=== PATIENT | male | born 1975 | race Caucasian/White ===

== ENCOUNTER 2023-01-13 17:42 | Emergency (ER) | payer OTHER ==
[2023-01-13] MEDS ORDERED: LIDOCAINE 1% MPF 5 ML VIAL ONE (18:16)
[2023-01-13] MEDS ORDERED: TDAP (DIPHTH,PERTUSS(ACELL),TET VAC) 0.5 ML VIAL IMVAC ONE (18:16)
--- NOTE | 2023-01-13 19:21 | RAD REPORT ---
EXAM DESCRIPTION: RAD - Foot Left 3 View - 01/13/2023 6:44 pm CLINICAL HISTORY: WOUND COMPARISON: No comparisons TECHNIQUE: Left foot, 3 views. FINDINGS: No fracture, dislocation or periosteal reaction. No air or foreign body in the soft tissues. Small calcaneal spur. IMPRESSION: Negative left foot radiographs.
--- NOTE | 2023-01-13 20:28 | EDPHYS ---
Physician Documentation [facility] Name: Shahram Estes Age: 47 yrs Sex: Male : 1975 Arrival Date: 01/13/2023 Time: 17:42 Bed 10 Private MD: ED Physician Barrett Vogel HPI: 01/13 18:52 This 47 yrs old Male presents to ER via Ambulatory with complaints of Laceration To rn Foot - Toe. 18:52 The patient has a laceration occurred outdoors. The laceration(s) is(are) located on rn the plantar aspect of left first toe. Onset: The symptoms/episode began/occurred just prior to arrival. The patient has not experienced similar symptoms in the past. The patient has not recently seen a physician. Historical: - Allergies: 18:02 No Known Allergies; mb9 - Home Meds: 18:02 losartan-hydrochlorothiazide oral [Active]; amlodipine oral [Active]; mb9 - PMHx: 18:02 Hypertensive disorder; mb9 - PSHx: 18:02 None; mb9 - Immunization history:: Last tetanus immunization: < 10 years ago. - Social history:: Smoking status: Patient reports the use of cigarette tobacco products, denies chronic smoking, but will smoke occasionally. - Family history:: not pertinent. - Hospitalizations: : No recent hospitalization is reported. ROS: 18:52 Constitutional: Negative for fever, chills, and weight loss, MS/Extremity: + laceration rn to left 1st toe Exam: 18:52 Constitutional: This is a well developed, well nourished patient who is awake, alert, rn and in no acute distress. MS/ Extremity: Pulses equal, no cyanosis. Neurovascular intact. Full, normal range of motion. Plantar aspect of left 1st toe with irregular and superficial 3 cm laceration, mild bleeding Vital Signs: 18:01 BP 147 / 105; Pulse 89; Resp 18; Temp 98.4(O); Pulse Ox 100% on R/A; Weight 97.52 kg; mb9 Height 5 ft. 11 in. ; 20:35 BP 157 / 111; Pulse 80; Resp 18; Pain 3/10; nj1 18:01 Body Mass Index 29.99 (97.52 kg, 180.34 cm) mb9 20:35 Pain Scale: Adult nj1 Laceration: 20:24 Wound Repair of 3cm ( 1.2in ) subcutaneous laceration to plantar aspect of left first rn toe. Distal neuro/vascular/tendon intact. Anesthesia: Wound infiltrated with 3 mls of 1% lidocaine. Wound prep: Extensive cleansing by me, Wound irrigation by me, Particulate matter removal of gravel, Wound margin revised minimally, Wound debrided minimally, Wound explored extensively. Skin closed with 6 4-0 Prolene using interrupted sutures and sterile technique. Dressed with 4x4's. Patient tolerated well. MDM: 17:48 Patient medically screened. rn 20:24 Differential diagnosis: superficial laceration. Data reviewed: vital signs, nurses rn notes, radiologic studies, plain films, and as a result, I will discharge patient. 20:26 Counseling: I had a detailed discussion with the patient and/or guardian regarding: the rn historical points, exam findings, and any diagnostic results supporting the discharge/admit diagnosis, radiology results, the need for outpatient follow up, to return to the emergency department if symptoms worsen or persist or if there are any questions or concerns that arise at home. Response to treatment: the patient's symptoms have markedly improved after treatment, and as a result, I will discharge patient. Special discussion: I discussed with the patient/guardian in detail that at this point there is no indication for admission to the hospital. It is understood, however, that if the symptoms persist or worsen the patient needs to return immediately for re-evaluation. 01/13 18:30 Order name: Foot Left 3 View; Complete Time: 20:26 EDMS 01/13 18:03 Order name: Wound Care; Complete Time: 18:38 rn 01/13 18:03 Order name: Suture Tray at Bedside; Complete Time: 18:10 rn Administered Medications: 18:10 Drug: Tetanus Toxoid,Adsorbed IM 0.5 ml {Calender Tender: [employer] ([employer]ou[employer]). Exp: mb9 06/23/2023. Lot #: [id number]. } Route: IM; Site: right deltoid; 20:34 Follow up: Response: (VIS) Vaccine information sheet provided today. Questions and/or nj1 concerns addressed. VIS edition date: Jan 09, 2021.; No adverse reaction 20:34 Drug: Lidocaine Infiltration (1 %) 1 vials {Note: Vial given to Dr Vogel for nj1 administration.} Volume: 5 ml; Route: Infiltration; 20:34 Drug: Doxycycline PO 100 mg Route: PO; nj1 Disposition Summary: 01/13/23 20:28 Discharge Ordered Location: Home rn Problem: new rn Symptoms: have improved rn Condition: Stable rn Diagnosis - Laceration without foreign body of left great toe without damage to nail, initial rn encounter Followup: rn - With: Emergency Department - When: 14 days - Reason: Staple/Suture removal Discharge Instructions: - Discharge Summary Sheet rn - Laceration Care, Adult rn Forms: - Medication Reconciliation Form rn - Thank You Letter rn - 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
--- NOTE | 2023-01-13 20:28 | ER ---
Nurse's Notes [facility] Name: Shahram Estes Age: 47 yrs Sex: Male : 1975 Arrival Date: 01/13/2023 Time: 17:42 Bed 10 Private MD: Diagnosis: Laceration without foreign body of left great toe without damage to nail, initial encounter Presentation: 01/13 18:01 Chief complaint: Patient states: "[place], cutting my left mb9 big toe on the rock or a can". Coronavirus screen: Vaccine status: Patient reports receiving the 2nd dose of the covid vaccine. Ebola Screen: No symptoms or risks identified at this time. Complicating Factors: There are no complicating factors for this patient. Initial Sepsis Screen: Does the patient meet any 2 criteria? No. Patient's initial sepsis screen is negative. Does the patient have a suspected source of infection? No. Patient's initial sepsis screen is negative. Risk Assessment: Do you want to hurt yourself or someone else? Patient reports no desire to harm self or others. Onset of symptoms was January 13, 2023. 18:01 Method Of Arrival: Ambulatory mb9 18:01 Acuity: ANH 3 mb9 Triage Assessment: 18:03 General: Appears in no apparent distress. Behavior is cooperative. Pain: Complains of mb9 pain in left foot. Neuro: Bowen Agitation-Sedation Scale (RASS): 0 - Alert and Calm Level of Consciousness is awake, alert, obeys commands, Oriented to person, place, time, situation, Appropriate for age. Cardiovascular: Patient's skin is warm and dry. Respiratory: Airway is patent Respiratory effort is even, unlabored, Respiratory pattern is regular, symmetrical. GI: No signs and/or symptoms were reported involving the gastrointestinal system. : No signs and/or symptoms were reported regarding the genitourinary system. Derm: Skin is pink, warm \\T\\ dry. Musculoskeletal: Range of motion: intact in all extremities. Injury Description: Laceration sustained to left great toe is jagged, 0.5 to 2.5 cm long, not bleeding. Historical: - Allergies: 18:02 No Known Allergies; mb9 - Home Meds: 18:02 losartan-hydrochlorothiazide oral [Active]; amlodipine oral [Active]; mb9 - PMHx: 18:02 Hypertensive disorder; mb9 - PSHx: 18:02 None; mb9 - Immunization history:: Last tetanus immunization: < 10 years ago. - Social history:: Smoking status: Patient reports the use of cigarette tobacco products, denies chronic smoking, but will smoke occasionally. - Family history:: not pertinent. - Hospitalizations: : No recent hospitalization is reported. Screenin:08 [facility] ED Fall Risk Assessment (Adult) Score/Fall Risk Level 0 - 2 = Low Risk [facility] Oriented to surroundings, Maintained a safe environment, Hourly rounding (assess needs \\T\\ fall precautionary measures) done. Abuse screen: Denies threats or abuse. Denies injuries from another. Nutritional screening: No deficits noted. Tuberculosis screening: No symptoms or risk factors identified. Assessment: 18:08 Reassessment: See triage assessment. [facility] 19:45 Reassessment: Patient appears in no apparent distress at this time. Patient and/or [facility] family updated on plan of care and expected duration. Pain level reassessed. Patient is alert, oriented x 3, equal unlabored respirations, skin warm/dry/pink. 20:35 Reassessment: Patient appears in no apparent distress at this time. Patient and/or wa1 family updated on plan of care and expected duration. Pain level reassessed. Patient is alert, oriented x 3, equal unlabored respirations, skin warm/dry/pink. Patient states feeling better. Vital Signs: 18:01 BP 147 / 105; Pulse 89; Resp 18; Temp 98.4(O); Pulse Ox 100% on R/A; Weight 97.52 kg; mb9 Height 5 ft. 11 in. ; 20:35 BP 157 / 111; Pulse 80; Resp 18; Pain 3/10; nj1 18:01 Body Mass Index 29.99 (97.52 kg, 180.34 cm) mb9 20:35 Pain Scale: Adult [facility] ED Course: 17:46 Patient arrived in ED. mg5 17:47 Barrett Vogel MD is Attending Physician. rn 17:55 Arm band placed on. mb9 18:02 Triage completed. 9 18:04 Bed in low position. Call light in reach. Side rails up X 1. Client placed on mb9 continuous cardiac and pulse oximetry monitoring. NIBP monitoring applied. 18:07 Alberta Dalton, RN is Primary Nurse. nj1 18:08 Provided Education on: fall precautions, call light. nj1 18:35 Wound care: to laceration located on plantar aspect of left first toe was soaked in wa1 Betadine solution. 18:45 Foot Left 3 View In Process Unspecified. EDMS 20:35 Assist provider with laceration repair Set up tray. Dressed with 2x2's and coban. nj1 Patient did not have IV access during this emergency room visit. Administered Medications: 18:10 Drug: Tetanus Toxoid,Adsorbed IM 0.5 ml {Store Person: [employer] ([employer]). Exp: mb9 06/23/2023. Lot #: [id number]. } Route: IM; Site: right deltoid; 20:34 Follow up: Response: (VIS) Vaccine information sheet provided today. Questions and/or [facility] concerns addressed. VIS edition date: Jan 09, 2021.; No adverse reaction 20:34 Drug: Lidocaine Infiltration (1 %) 1 vials {Note: Vial given to Dr Vogel for [facility] administration.} Volume: 5 ml; Route: Infiltration; 20:34 Drug: Doxycycline PO 100 mg Route: PO; nj1 Medication: 18:05 VIS not applicable for this client. mb9 Outcome: 20:28 Discharge ordered by . rn 20:35 Discharged to home ambulatory. nj1 20:35 Condition: stable 20:35 Discharge instructions given to patient, Instructed on discharge instructions, follow up and referral plans. medication usage, wound care, Demonstrated understanding of instructions, follow-up care, medications, wound care, Prescriptions given X 1. 20:40 Patient left the ED. [facility] Signatures: Dispatcher [employer] EDSD Barrett Vogel MD MD rn Breneman, Oxana Hidalgo RN RN mb9 Alberta Dalton, RN RN [email or web address] Lianne Denson mg5 Corrections: (The following items were deleted from the chart) 20:36 20:35 Discharge instructions given to patient, Instructed on discharge instructions, [facility] follow up and referral plans. medication usage, wound care, Demonstrated understanding of instructions, follow-up care, medications, wound care, nj1
[2023-01-13] MEDS ORDERED: DOXYCYCLINE 100 MG CAP PO ONE (20:39)
[2023-01-13 20:44] VITALS: TEMP 98.4; O2SAT 100
[2023-01-13 20:46] VITALS: BP 157/111
== END 2023-01-13 20:40 | disposition home or self-care (01) ==
LOC: ER 17:42
PROC: 0HQNXZZ Repair Left Foot Skin, External Approach (ICD-10-PCS; principal; 2023-01-13)
DX: S91.112A Laceration without foreign body of left great toe without damage to nail, initial encounter (principal); Z23 Encounter for immunization; I10 Essential (primary) hypertension
CPT/HCPCS: 73630; 90471; 99284; 12002; J2001